=== PATIENT | male | born 1950 | race Caucasian/White ===

== ENCOUNTER 2017-01-14 18:03 | Inpatient (IN) | payer OTHER ==
[~2017-01-14] VITALS: Ht 177.8 cm; Wt 134.3 kg
[2017-01-14 18:40] LABS: HEMATOCRIT 44.4 % (38.0-50.0); MCH 31.7 PG (29.0-34.0); MCHC 34.2 G/DL (30.0-36.0); MCV 92.7 FL (86-99); MEAN PLAT.VOLUME 8.9 uM^3 (9.0-12.4); PLATELET COUNT 250 K/uL (156-360); RBC DIS.WIDTH-CV 14.3 % (11.8-14.6); RED BLOOD COUNT 4.79 M/uL (4.00-5.50); WHITE BLOOD COUNT 11.2 K/uL (4.1-10.2)
[2017-01-14 18:46] LABS: INTER. NORMALIZED RATIO 1.3; PROTHROMBIN TIME 14.2 SEC (10.2-12.9)
[2017-01-14 18:47] LABS: BASE EXCESS -0.7 mEq/L (-3 to +3); BICARBONATE 25.4 mEq/L (22-26); CARBOXY HGB 2.7 % (0-5); COMMENTS - BLOOD GASES A+C+; DEVICE PB 840; FI02 100 %; METHEMOGLOBIN 0.6 % (0-1.5); MODE SPONT; PCO2 46 mm Hg (35-45); PEEP 7.5 CM/H20; PO2 274 mm Hg (80-100); PRES. SUPPORT 10 CM/H2O; SITE LR; TOTAL RESP RATE 31 resp/min; pH 7.35 (7.35-7.45)
[2017-01-14 18:48] LABS: PTT 28.8 SEC (25-37)
[2017-01-14 18:50] LABS: CHLORIDE 98 mEq/L (99-109); POTASSIUM 4.3 mEq/L (3.7-5.4); SODIUM 134 mEq/L (136-147)
[2017-01-14 18:51] LABS: GLUCOSE 140 mg/dL (70-99)
[2017-01-14 18:53] LABS: ANION GAP 15 MEQ/L (2-14)
[2017-01-14 18:55] LABS: GFR ESTIMATE (CALCULATED) > 59 mL/min/
[2017-01-14 18:56] LABS: UREA NITROGEN (BUN) 21 mg/dL (9-23)
[2017-01-14 19:03] LABS: TROP-I INTERPRETATION NEGATIVE; TROPONIN-I 0.04 ng/mL (0.0-0.30)
[2017-01-14] MEDS ORDERED: SPIRIVA1 INHALATI IH (19:32)
[2017-01-14] MEDS ORDERED: LITE COAT ASPI325 M1 PO (19:32)
[2017-01-14] MEDS ORDERED: METFORMIN HCL500 MG PO (19:32)
[2017-01-14] MEDS ORDERED: ATENOLOL100 MG PO (19:32)
[2017-01-14] MEDS ORDERED: FINASTERIDE5 MG PO (19:33)
[2017-01-14] MEDS ORDERED: CLOPIDOGREL75 MG PO (19:33)
[2017-01-14] MEDS ORDERED: PRAVACHOL40 MG PO (19:33)
[2017-01-14] MEDS ORDERED: AMLODIPINE-BEN1 EACH PO (19:33)
[2017-01-14] MEDS ORDERED: IMDUR30 MG PO (19:33)
[2017-01-14] MEDS ORDERED: TRICOR145 MG PO (19:33)
[2017-01-14] MEDS ORDERED: FUROSEMIDE40 MG PO (19:33)
[2017-01-14] MEDS ORDERED: DAILY VALUE1 EACH PO (19:34)
[2017-01-14] MEDS ORDERED: VENTOLIN HFA18 GM IH (19:34)
[2017-01-14 23:49] LABS: ADD MIUA? YES; BILIRUBIN NEGATIVE; BLOOD MODERATE; COLOR AMBER ((YELLOW)); GLUCOSE (STRIP) NEGATIVE; KETONES NEGATIVE; LEUKOCYTES NEGATIVE; NITRITE NEGATIVE; PROTEIN (STRIP) 30; SPECIFIC GRAVITY 1.018 (1.000-1.030)
[2017-01-14 23:50] VITALS: BP 122/68
[2017-01-14 23:58] LABS: BACTERIA 1+ /HPF; EPITHELIAL CELLS RARE /HPF; MUCUS 2+ /LPF; RED BLOOD CELLS TNTC /HPF (0-5); UCUL ADDED? YES
[2017-01-15] VITALS (19 sets, daily range): BP systolic 101–166; BP diastolic 38–129
[2017-01-15 01:47] LABS: METH RESISTANT S AUREUS PCR NEGATIVE (NEGATIVE)
[2017-01-15 01:54] LABS: PROBE CHECK PASS; SPECIMEN PROCESSING CONTROL PASS
[2017-01-15 02:10] LABS: BASE EXCESS -1.1 mEq/L (-3 to +3); BICARBONATE 24.8 mEq/L (22-26); METHEMOGLOBIN 1.1 % (0-1.5); PCO2 45 mm Hg (35-45); pH 7.35 (7.35-7.45)
[2017-01-15 02:11] LABS: COMMENTS - BLOOD GASES C+; DEVICE NRB MASK; FI02 100 %; O2 FLOW 15 L/MIN; PO2 208 mm Hg (80-100); SITE LR; TOTAL RESP RATE 28 resp/min
[2017-01-15 06:08] LABS: HEMATOCRIT 43.5 % (38.0-50.0); MCH 31.3 PG (29.0-34.0); MCHC 33.6 G/DL (30.0-36.0); MCV 93.1 FL (86-99); MEAN PLAT.VOLUME 8.9 uM^3 (9.0-12.4); PLATELET COUNT 236 K/uL (156-360); RBC DIS.WIDTH-CV 14.3 % (11.8-14.6); RBC DIS.WIDTH-SD 48.9 % (39-53); RED BLOOD COUNT 4.67 M/uL (4.00-5.50); WHITE BLOOD COUNT 9.7 K/uL (4.1-10.2)
[2017-01-15 06:32] LABS: POINT-OF-CARE METER ID UU14162636
[2017-01-15 06:32] LABS: ANION GAP 12 MEQ/L (2-14); CHLORIDE 99 MEQ/L (99-109); GFR ESTIMATE (CALCULATED) > 59 mL/min/; GLUCOSE 142 mg/dL (70-99); POTASSIUM 4.9 MEQ/L (3.7-5.4); SAMPLE HEMOLYSIS CHECK 0; SAMPLE ICTERIC CHECK 0; SAMPLE LIPEMIA CHECK 0; SODIUM 137 MEQ/L (136-147); UREA NITROGEN (BUN) 27 mg/dL (9-23)
[2017-01-15 12:03] LABS: POINT-OF-CARE METER ID UU14162636
[2017-01-15 17:03] LABS: POINT-OF-CARE METER ID UU14162636
[2017-01-15 22:54] LABS: POINT-OF-CARE METER ID UU14162636; POINT-OF-CARE USER ID 606021424
[2017-01-16] VITALS (10 sets, daily range): BP systolic 118–142; BP diastolic 59–93
[2017-01-16 08:38] LABS: POINT-OF-CARE METER ID UU13113731
[2017-01-16 12:19] LABS: POINT-OF-CARE METER ID UU13113731
[2017-01-16 13:41] LABS: ANION GAP 8 MEQ/L (2-14); CHLORIDE 101 MEQ/L (99-109); POTASSIUM 5.5 MEQ/L (3.7-5.4); SAMPLE HEMOLYSIS CHECK 0; SAMPLE ICTERIC CHECK 0; SAMPLE LIPEMIA CHECK 0; SODIUM 141 MEQ/L (136-147); TOTAL BILIRUBIN 0.6 MG/DL (0.0-1.0)
[2017-01-16 13:47] LABS: ALKALINE PHOSPHATASE 50 IU/L (3-129); GFR ESTIMATE (CALCULATED) > 59 mL/min/; GLUCOSE 129 mg/dL (70-99); UREA NITROGEN (BUN) 34 mg/dL (9-23)
[2017-01-16 17:28] LABS: POINT-OF-CARE METER ID UU14162508
[2017-01-16 21:58] LABS: POINT-OF-CARE METER ID UU14162508
[2017-01-17 03:03] VITALS: BP 143/63
[2017-01-17 06:47] LABS: POINT-OF-CARE METER ID UU14162508
[2017-01-17 07:00] VITALS: BP 138/70
[2017-01-17 07:24] LABS: ALKALINE PHOSPHATASE 46 IU/L (3-129); ANION GAP 8 MEQ/L (2-14); CHLORIDE 103 MEQ/L (99-109); DIRECT BILIRUBIN 0.2 mg/dL (0.0-0.3); GFR ESTIMATE (CALCULATED) > 59 mL/min/; GLUCOSE 119 mg/dL (70-99); SAMPLE HEMOLYSIS CHECK 0; SAMPLE ICTERIC CHECK 0; SAMPLE LIPEMIA CHECK 0; SODIUM 143 MEQ/L (136-147); TOTAL BILIRUBIN 0.5 MG/DL (0.0-1.0); UREA NITROGEN (BUN) 32 mg/dL (9-23)
[2017-01-17 07:25] LABS: POTASSIUM 4.1 MEQ/L (3.7-5.4)
[2017-01-17 11:53] LABS: POINT-OF-CARE METER ID UU14162508
[2017-01-17 13:02] VITALS: BP 125/76
[2017-01-17 16:08] VITALS: BP 133/74
[2017-01-17 17:28] LABS: POINT-OF-CARE METER ID UU14314084
[2017-01-17 19:51] VITALS: BP 120/77
[2017-01-17 21:51] LABS: POINT-OF-CARE METER ID UU14314084
[2017-01-17 23:55] VITALS: BP 127/85
[2017-01-18 04:40] VITALS: BP 155/84
[2017-01-18 06:12] LABS: POINT-OF-CARE METER ID UU14314084
[2017-01-18 07:19] LABS: ANION GAP 9 MEQ/L (2-14); CHLORIDE 103 MEQ/L (99-109); GFR ESTIMATE (CALCULATED) > 59 mL/min/; GLUCOSE 107 mg/dL (70-99); SAMPLE HEMOLYSIS CHECK 0; SAMPLE ICTERIC CHECK 0; SAMPLE LIPEMIA CHECK 0; SODIUM 144 MEQ/L (136-147); UREA NITROGEN (BUN) 26 mg/dL (9-23)
[2017-01-18 08:02] VITALS: BP 178/84
[2017-01-18 12:18] LABS: POINT-OF-CARE METER ID UU14314084
[2017-01-18 15:41] VITALS: BP 134/86
[2017-01-18 16:51] LABS: POINT-OF-CARE METER ID UU14208750
[2017-01-18 21:27] LABS: POINT-OF-CARE METER ID UU14162508
[2017-01-18 23:40] VITALS: BP 140/81
[2017-01-19 06:27] LABS: POINT-OF-CARE METER ID UU14162508
[2017-01-19 07:05] VITALS: BP 141/93
[2017-01-19 07:23] LABS: ANION GAP 13 MEQ/L (2-14); CHLORIDE 99 MEQ/L (99-109); GFR ESTIMATE (CALCULATED) > 59 mL/min/; GLUCOSE 139 mg/dL (70-99); POTASSIUM 4.7 MEQ/L (3.7-5.4); SAMPLE HEMOLYSIS CHECK 0; SAMPLE ICTERIC CHECK 0; SAMPLE LIPEMIA CHECK 0; SODIUM 144 MEQ/L (136-147); UREA NITROGEN (BUN) 21 mg/dL (9-23)
[2017-01-19] MEDS ORDERED: PREDNISONE10 MG PO (09:36)
[2017-01-19] MEDS ORDERED: CEFTIN500 MG PO (09:36)
[2017-01-19] MEDS ORDERED: ADVAIR HFA120 INHALA IH (09:37)
== END 2017-01-19 12:09 | disposition home health service (06) | DRG 193 ==
LOC: EME 18:03 → 4WEST 22:37 → EDOF 22:37 → ENRESERV 22:37 → 4WEST 23:49 → ENRESERV 01-16 12:25 → 2EAST 01-16 15:07
PROVIDERS: Emergency Medicine; Family Medicine; Obstetrics & Gynecology
PROC: 5A09357 Assistance with Respiratory Ventilation, Less than 24 Consecutive Hours, Continuous Positive Airway Pressure (ICD-10-PCS; principal; 2017-01-14)
DX: J18.9 Pneumonia, unspecified organism (principal); J44.0 Chronic obstructive pulmonary disease with (acute) lower respiratory infection; J44.1 Chronic obstructive pulmonary disease with (acute) exacerbation; J96.01 Acute respiratory failure with hypoxia; E87.5 Hyperkalemia; K80.10 Calculus of gallbladder with chronic cholecystitis without obstruction; E11.51 Type 2 diabetes mellitus with diabetic peripheral angiopathy without gangrene; E66.01 Morbid (severe) obesity due to excess calories; Z68.41 Body mass index [BMI] 40.0-44.9, adult; I48.92 Unspecified atrial flutter; I48.91 Unspecified atrial fibrillation; I25.10 Atherosclerotic heart disease of native coronary artery without angina pectoris; I10 Essential (primary) hypertension; E78.5 Hyperlipidemia, unspecified; G47.33 Obstructive sleep apnea (adult) (pediatric); K76.0 Fatty (change of) liver, not elsewhere classified; I25.5 Ischemic cardiomyopathy; I25.2 Old myocardial infarction; I45.10 Unspecified right bundle-branch block; R60.0 Localized edema; Z86.73 Personal history of transient ischemic attack (TIA), and cerebral infarction without residual deficits; F17.200 Nicotine dependence, unspecified, uncomplicated; Z95.1 Presence of aortocoronary bypass graft; Z95.820 Peripheral vascular angioplasty status with implants and grafts; Z79.82 Long term (current) use of aspirin; Z79.84 Long term (current) use of oral hypoglycemic drugs; Z79.02 Long term (current) use of antithrombotics/antiplatelets; Z82.49 Family history of ischemic heart disease and other diseases of the circulatory system; Z83.3 Family history of diabetes mellitus
CPT/HCPCS: 36600; 71010; 74176; 76705; 80048; 80053; 80076; 81003; 82803; 82948; 83605; 83880; 84484; 85027; 85610; 85730; 87040; 87070; 87086; 87205; 87641; 93005; 94002; 94010; 94640; 94640 76; 94644; 94799; 99202; 99281; 99285; J0295; J0456; J0692; J1644; J1815; J2930; J7050; J7512

== ENCOUNTER 2017-03-20 17:19 | Emergency (ER) | payer OTHER ==
[~2017-03-20] VITALS: Ht 177.8 cm; Wt 135.1 kg
[~2017-03-20 17:19] MED LIST: ADVAIR HFA120 INHALA IH; AMLODIPINE-BEN1 EACH PO; ATENOLOL100 MG PO; CEFTIN500 MG PO; CLOPIDOGREL75 MG PO; DAILY VALUE1 EACH PO; FINASTERIDE5 MG PO; FUROSEMIDE40 MG PO; IMDUR30 MG PO; LITE COAT ASPI325 M1 PO; METFORMIN HCL500 MG PO; PRAVACHOL40 MG PO; PREDNISONE10 MG PO; SPIRIVA1 INHALATI IH; TRICOR145 MG PO; VENTOLIN HFA18 GM IH
[2017-03-20 17:47] LABS: BASOPHIL (%) 0.9 % (0-1); BASOPHIL COUNT 0.1 K/uL (0-0.1); EOSINOPHIL (%) 1.8 % (0-5); EOSINOPHIL COUNT 0.2 K/uL (0-0.3); HEMATOCRIT 43.9 % (38.0-50.0); HEMOGLOBIN 14.7 G/DL (12.5-16.6); IMMATURE GRANULOCYTE (%) 1.8 % (0.0-0.7); LYMPHOCYTE COUNT 0.8 K/uL (1.0-2.8); MCH 30.9 PG (29.0-34.0); MCHC 33.5 G/DL (30.0-36.0); MCV 92.4 FL (86-99); MONOCYTE (%) 8.6 % (3-12); MONOCYTE COUNT 0.8 K/uL (0-0.8); NEUTROPHIL (%) 77.9 % (45-76); NEUTROPHIL COUNT 6.9 K/uL (1.8-6.4); PLATELET COUNT 223 K/uL (156-360); RBC DIS.WIDTH-CV 15.3 % (11.8-14.6); RBC DIS.WIDTH-SD 52.1 % (39-53); RED BLOOD COUNT 4.75 M/uL (4.00-5.50); WHITE BLOOD COUNT 8.9 K/uL (4.1-10.2)
[2017-03-20 17:57] LABS: ALBUMIN 4.2 g/dL (3.2-4.8); CHLORIDE 101 mEq/L (99-109); MAGNESIUM 1.9 mg/dL (1.3-2.7); POTASSIUM 4.6 mEq/L (3.7-5.4); SODIUM 140 mEq/L (136-147)
[2017-03-20 17:59] LABS: GLUCOSE 117 mg/dL (70-99); TOTAL PROTEIN 7.2 g/dL (6.4-8.3)
[2017-03-20 18:01] LABS: TOTAL BILIRUBIN 0.7 mg/dL (0.0-1.0)
[2017-03-20 18:02] LABS: ALKALINE PHOSPHATASE 51 IU/L (3-129)
[2017-03-20 18:03] LABS: CREATININE 1.2 mg/dL (0.6-1.3); GFR ESTIMATE (CALCULATED) > 59 mL/min/ (58.99-99999)
[2017-03-20 18:04] LABS: AST (GOT) 52 IU/L (2-34); UREA NITROGEN (BUN) 16 mg/dL (9-23)
[2017-03-20 18:06] LABS: ALT (GPT) 34 IU/L (3-49)
[2017-03-20 18:08] LABS: TROP-I INTERPRETATION NEGATIVE; TROPONIN-I 0.11 ng/mL (0.0-0.30)
[2017-03-20 19:22] LABS: BASE EXCESS 5.5 mEq/L (-3 to +3); BICARBONATE 28.9 mEq/L (22-26); CARBOXY HGB 2.7 % (0-5)
[2017-03-20 19:23] LABS: COMMENTS - BLOOD GASES A+C+; DEVICE 840 VENT; FI02 35 %; MODE SPONT NIV; PCO2 37 mm Hg (35-45); PO2 70 mm Hg (80-100); SITE LR; TOTAL RESP RATE 30 resp/min
[2017-03-20 19:24] LABS: PEEP 5 CM/H20; PRES. SUPPORT 12 CM/H2O
[2017-03-20 21:57] VITALS: BP 130/83
== END 2017-03-20 22:00 | disposition left against medical advice (07) ==
LOC: EME 17:19
PROVIDERS: Emergency Medicine
DX: I48.92 Unspecified atrial flutter (principal); I11.0 Hypertensive heart disease with heart failure; I50.9 Heart failure, unspecified; R09.02 Hypoxemia; J44.1 Chronic obstructive pulmonary disease with (acute) exacerbation; I25.10 Atherosclerotic heart disease of native coronary artery without angina pectoris; I25.2 Old myocardial infarction; E11.9 Type 2 diabetes mellitus without complications; Z86.73 Personal history of transient ischemic attack (TIA), and cerebral infarction without residual deficits; Z95.1 Presence of aortocoronary bypass graft; Z87.891 Personal history of nicotine dependence; Z79.84 Long term (current) use of oral hypoglycemic drugs; Z79.82 Long term (current) use of aspirin
CPT/HCPCS: 36600; 71046; 80053; 82803; 83735; 83880; 84484; 85025; 93005; 94002; 94640; 99281; 99285; J1940

== ENCOUNTER 2017-03-22 19:14 | Emergency (ER) | payer OTHER ==
[~2017-03-22] VITALS: Ht 177.8 cm; Wt 132.2 kg
[2017-03-22 20:24] LABS: HEMATOCRIT 43.1 % (38.0-50.0); HEMOGLOBIN 14.2 G/DL (12.5-16.6); MCH 30.5 PG (29.0-34.0); MCHC 32.9 G/DL (30.0-36.0); MCV 92.7 FL (86-99); PLATELET COUNT 205 K/uL (156-360); RBC DIS.WIDTH-CV 15.3 % (11.8-14.6); RBC DIS.WIDTH-SD 52.1 % (39-53); RED BLOOD COUNT 4.65 M/uL (4.00-5.50); WHITE BLOOD COUNT 7.9 K/uL (4.1-10.2)
[2017-03-22 20:28] LABS: INTER. NORMALIZED RATIO 1.2
[2017-03-22 20:33] LABS: ALBUMIN 3.9 g/dL (3.2-4.8)
[2017-03-22 20:34] LABS: CHLORIDE 104 mEq/L (99-109); POTASSIUM 3.8 mEq/L (3.7-5.4); SODIUM 143 mEq/L (136-147)
[2017-03-22 20:36] LABS: GLUCOSE 98 mg/dL (70-99); TOTAL PROTEIN 6.9 g/dL (6.4-8.3)
[2017-03-22 20:39] LABS: ALKALINE PHOSPHATASE 44 IU/L (3-129)
[2017-03-22 20:40] LABS: CREATININE 1.1 mg/dL (0.6-1.3); GFR ESTIMATE (CALCULATED) > 59 mL/min/ (58.99-99999); TOTAL BILIRUBIN 0.4 mg/dL (0.0-1.0)
[2017-03-22 20:41] LABS: AST (GOT) 36 IU/L (2-34)
[2017-03-22 20:42] LABS: ALT (GPT) 29 IU/L (3-49)
[2017-03-22 20:46] LABS: UREA NITROGEN (BUN) 25 mg/dL (9-23)
[2017-03-22 20:47] LABS: TROP-I INTERPRETATION NEGATIVE; TROPONIN-I 0.04 ng/mL (0.0-0.30)
[2017-03-22 23:35] LABS: APPEARANCE SL.HAZY ((CLEAR)); BILIRUBIN NEGATIVE; BLOOD NEGATIVE; COLOR YELLOW ((YELLOW)); GLUCOSE (STRIP) NEGATIVE; KETONES NEGATIVE; LEUKOCYTES NEGATIVE; NITRITE NEGATIVE; PROTEIN (STRIP) 30; SPECIFIC GRAVITY 1.021 (1.000-1.030)
[2017-03-22 23:41] LABS: BACTERIA RARE /HPF; EPITHELIAL CELLS NONE SEEN /HPF; MUCUS TRACE /LPF; RED BLOOD CELLS 0-5 /HPF (0-5); WHITE BLOOD CELLS 0-5 /HPF (0-5)
[2017-03-22 23:54] VITALS: BP 104/77
== END 2017-03-22 23:55 | disposition home or self-care (01) ==
LOC: EME → EDBD 19:14 → EME 23:55
PROVIDERS: Emergency Medicine Emergency Medical Services
DX: R60.0 Localized edema (principal); R80.9 Proteinuria, unspecified; I11.0 Hypertensive heart disease with heart failure; I50.9 Heart failure, unspecified; R10.9 Unspecified abdominal pain; J44.9 Chronic obstructive pulmonary disease, unspecified; E11.9 Type 2 diabetes mellitus without complications; I25.2 Old myocardial infarction; Z79.84 Long term (current) use of oral hypoglycemic drugs; Z79.82 Long term (current) use of aspirin; Z87.891 Personal history of nicotine dependence; Z95.1 Presence of aortocoronary bypass graft; Z86.79 Personal history of other diseases of the circulatory system; Z87.01 Personal history of pneumonia (recurrent); Z90.89 Acquired absence of other organs; Z95.820 Peripheral vascular angioplasty status with implants and grafts
CPT/HCPCS: 71046; 74176; 80053; 81003; 83880; 84484; 85027; 85610; 93005; 99281; 99285